=== PATIENT | female | born 1940 | race Caucasian/White ===

== ENCOUNTER 2018-10-22 19:51 | Inpatient (IN) | payer OTHER ==
[~2018-10-22] VITALS: Ht 162.6 cm; Wt 97.3 kg
[2018-10-22 20:02] VITALS: Ht 162.6 cm; Wt 97.3 kg
[2018-10-22 20:36] LABS: BASOPHIL % 0.4 % (0-2); PLATELET COUNT 237 x10^3mcL (130-400); RED CELL DISTRIBUTION WIDTH 13.3 % (11.5-14.5)
[2018-10-22 20:43] LABS: CALCIUM 8.6 mg/dL (8.5-10.1); CARBON DIOXIDE 32.4 mmol/L (21-32); CHLORIDE SERUM 107 mmol/L (98-107); GLUCOSE SERUM 173 mg/dL (74-106); SODIUM SERUM 146 mmol/L (136-145)
[2018-10-22 20:49] LABS: ALBUMIN 3.7 g/dL (3.4-5.0); ALKALINE PHOSPHATASE 137 U/L (46-116); ALT/SGPT 29 U/L (14-59); AST/SGOT 17 U/L (15-37); BILIRUBIN TOTAL 0.26 mg/dL (0.20-1.00); TOTAL PROTEIN, SERUM 7.5 g/dL (6.4-8.2)
[2018-10-23 00:31] LABS: AMYLASE 50 U/L (25-115); CHOLESTEROL 173 mg/dL (<200); LIPASE 196 IU/L (73-393); MAGNESIUM 2.3 mg/dL (1.8-2.4); PHOSPHOROUS 3.8 mg/dL (2.5-4.9)
[2018-10-23 00:42] LABS: FREE T4 0.81 ng/dL (0.76-1.46); FREE THYROXINE INDEX 2.5 ug/dL (1.4-4.5); T3 TOTAL 1.07 ng/mL; T4(THYROXINE) 7.7 ug/dL (4.7-13.3)
[2018-10-23 00:48] LABS: CHOLESTEROL/HDL RATIO 5.1; HDL CHOLESTEROL 34 mg/dL (40-60); TRIGLYCERIDES 456 mg/dL (<150)
[2018-10-23] MEDS ORDERED: TRAMADOL HCL50 MG PO (02:39)
[2018-10-23] MEDS ORDERED: ATIVAN0.5 M1 PO (02:39)
[2018-10-23] MEDS ORDERED: IMITREX50 MG PO (02:40)
[2018-10-23] MEDS ORDERED: ATORVASTATIN CA40 M1 PO (02:40)
[2018-10-23] MEDS ORDERED: AMITRIPTYLINE H25 MG PO (02:40)
[2018-10-23] MEDS ORDERED: MICARDIS HCT PO (02:41)
[2018-10-23] MEDS ORDERED: AMLODIPINE BES2.5 M1 PO (02:41)
[2018-10-23] MEDS ORDERED: MECLIZINE HYD12.5 MG PO (02:41)
[2018-10-23 03:26] VITALS: BP 145/74
[2018-10-23 04:32] VITALS: BP 112/64
[2018-10-23 06:56] LABS: AMPHETAMINE QUAL UR NONE DETECTED (See below)
[2018-10-23 07:16] LABS: UA SPECIFIC GRAVITY 1.015 (1.005-1.035); microscopic required? YES; urine erythrocyte NEGATIVE (NEGATIVE)
[2018-10-23 07:24] LABS: BASOPHIL % 1.4 % (0-2); PLATELET COUNT 228 x10^3mcL (130-400); RED CELL DISTRIBUTION WIDTH 13.2 % (11.5-14.5)
[2018-10-23 07:44] LABS: CALCIUM 8.6 mg/dL (8.5-10.1); CARBON DIOXIDE 29.3 mmol/L (21-32); CHLORIDE SERUM 107 mmol/L (98-107); CREATININE SERUM 0.8 mg/dL (0.6-1.0); GLUCOSE SERUM 107 mg/dL (74-106); POTASSIUM SERUM 4.3 mmol/L (3.5-5.1); SODIUM SERUM 143 mmol/L (136-145)
[2018-10-23 08:45] VITALS: BP 129/70
[2018-10-23 13:45] VITALS: BP 149/73
[2018-10-23 17:00] VITALS: BP 130/72
[2018-10-23] MEDS ORDERED: BG FS (18:02)
[2018-10-23] MEDS ORDERED: ECO81 PO (18:02)
[2018-10-23 18:06] VITALS: BP 130/72
== END 2018-10-23 18:55 | disposition home or self-care (01) | DRG 74 ==
LOC: ED 19:51 → DU 22:43
PROVIDERS: Emergency Medicine; General Practice
DX: G90.9 Disorder of the autonomic nervous system, unspecified (principal); M94.0 Chondrocostal junction syndrome [Tietze]; E11.65 Type 2 diabetes mellitus with hyperglycemia; I10 Essential (primary) hypertension; M54.5 Low back pain; E78.5 Hyperlipidemia, unspecified; Z79.82 Long term (current) use of aspirin; Z79.4 Long term (current) use of insulin; Z68.34 Body mass index [BMI] 34.0-34.9, adult
CPT/HCPCS: 82962; 83880; 84439; 85378; J7030; Q0092; Q9967